=== PATIENT | female | born 1965 | race African-American/Black ===

== ENCOUNTER 2019-01-20 11:00 | Inpatient (IN) | payer SELFPAY ==
[~2019-01-20] VITALS: Ht 198.1 cm; Wt 99.1 kg
[~2019-01-20 11:00] MED LIST: PHEN100C4
[2019-01-20] MEDS ORDERED: SODIUM CHLORIDE 0.9% 1,000 ML IV ONE (12:35)
[2019-01-20] MEDS ORDERED: PHENYTOIN SODIUM 1,000 MG in SODIUM CHLORIDE 0.9% 100 ML IV ONE (12:45)
[2019-01-20 13:44] LABS: CHLORIDE 97 mEq/L (98-107)
[2019-01-20 13:47] LABS: ETHANOL BLOOD < 10 mg/dL
[2019-01-20 14:46] LABS: MEAN CORPUSCULAR HEMOGLOBIN 26.6 pg (28.0-32.0); MEAN CORPUSCULAR VOLUME 84.8 fL (81.0-99.0); MEAN PLATELET VOLUME 8.5 fl (7.4-10.4); PLATELET 86 x1000/uL (130-400); RED BLOOD CELL COUNT 1.25 mill/uL (4.2-5.4); RED CELL DISTRIBUTION WIDTH 26.5 % (11.6-14.6)
[2019-01-20 14:48] LABS: HEMOGLOBIN. 3.3 g/dL (12.0-16.0)
[2019-01-20 14:49] LABS: HEMATOCRIT. 10.6 % (36.0-48.0)
[2019-01-20 14:56] LABS: CLARITY URINE CLOUDY (CLEAR); COLOR URINE DARK YELLOW (YELLOW); KETONES URINE TRACE (NEGATIVE); LEUKOCYTE ESTERASE URINE TRACE (NEGATIVE); NITRITE URINE NEGATIVE (NEGATIVE); OCCULT BLOOD URINE 2+ (NEGATIVE); PROTEIN URINE NEGATIVE (NEGATIVE); SPECIFIC GRAVITY URINE 1.015 (1.005-1.030)
[2019-01-20 15:02] LABS: NUCLEATED RED BLOOD CELLS 1 /100 WBC; PLATELET ESTIMATE DECREASED
[2019-01-20 15:19] LABS: *BARBITURATES SCREEN URINE NEGATIVE (NEGATIVE); *BENZODIAZEPINES SCREEN URINE NEGATIVE (NEGATIVE); *COCAINE SCREEN URINE NEGATIVE (NEGATIVE)
[2019-01-20 15:20] LABS: *AMPHETAMINES SCREEN URINE NEGATIVE (NEGATIVE); CANNABINOID URINE SCREEN NEGATIVE (NEGATIVE); METHADONE URINE SCREEN NEGATIVE (NEGATIVE); OPIATES URINE SCREEN NEGATIVE (NEGATIVE); PHENCYCLIDINE URINE SCREEN NEGATIVE (NEGATIVE)
[2019-01-20 16:27] LABS: MEAN CORPUSCULAR HEMOGLOBIN 26.5 pg (28.0-32.0); MEAN CORPUSCULAR VOLUME 84.7 fL (81.0-99.0); MEAN PLATELET VOLUME 8.6 fl (7.4-10.4); PLATELET 80 x1000/uL (130-400); RED BLOOD CELL COUNT 1.24 mill/uL (4.2-5.4); RED CELL DISTRIBUTION WIDTH 27.1 % (11.6-14.6)
[2019-01-20 16:29] LABS: HEMATOCRIT. 10.5 % (36.0-48.0); HEMOGLOBIN. 3.3 g/dL (12.0-16.0)
[2019-01-20] MEDS ORDERED: GUAIFENESIN 200MG/10ML SUGAR FREE UDC PO PRN (17:00)
[2019-01-20] MEDS ORDERED: DEXTROSE 50% WATER 50ML SYRINGE IV PRN (17:00)
[2019-01-20] MEDS ORDERED: CLONIDINE 0.1MG TABLET PO PRN (17:00)
[2019-01-20] MEDS ORDERED: ONDANSETRON HCL 4MG/2ML INJ IV PRN (17:00)
[2019-01-20] MEDS ORDERED: DOCUSATE SODIUM 100MG CAPSULE PO PRN (17:00)
[2019-01-20] MEDS ORDERED: MAGNESIUM/ALUMINUM HYDROXIDE/SIMETHICONE 30ML UDC PO PRN (17:00)
[2019-01-20] MEDS ORDERED: LORAZEPAM 2MG/ML CPJ IV PRN (17:00)
[2019-01-20] MEDS ORDERED: MORPHINE SULFATE 2 MG/ML CPJ (NOT FOR IM USE) IV PRN (17:00)
[2019-01-20] MEDS ORDERED: HYDRALAZINE 20MG/ML VIAL IV PRN (17:00)
[2019-01-20] MEDS ORDERED: HYDROCODONE/ACETAMINOPHEN 10/325MG TABLET PO PRN (17:00)
[2019-01-20] MEDS ORDERED: IPRATROPIUM/ALBUTEROL 0.5-3(2.5)MG/3ML NEB HHN PRN (17:00)
[2019-01-20] MEDS ORDERED: ACETAMINOPHEN 325MG TABLET PO PRN (17:00)
[2019-01-20] MEDS ORDERED: DIPHENHYDRAMINE 50MG/ML VIAL IV PRN (17:00)
[2019-01-20 17:02] LABS: PLATELET ESTIMATE DECREASED
[2019-01-20 17:29] LABS: TOTAL IRON BINDING CAPACITY 207 ug/dL (250-450)
[2019-01-20] MEDS: SODIUM CHLORIDE 0.9% INJ 3ML FLUSH IVF SCH (22:00)
[2019-01-21] VITALS (45 sets, daily range): BP systolic 76–117; BP diastolic 39–76
[2019-01-21] MEDS: SODIUM CHLORIDE 0.9% 1,000 ML IV SCH ×2 (00:21→12:23)
[2019-01-21] MEDS: INSULIN LISPRO 100 UNITS/ML SUBCUT SCH ×6 (00:25→21:00)
[2019-01-21] MEDS: BLOOD SUGAR DIAGNOSTIC STRIP TEST SCH ×6 (00:25→21:24)
[2019-01-21 02:05] LABS: MEAN CORPUSCULAR HEMOGLOBIN 28.4 pg (28.0-32.0); MEAN CORPUSCULAR VOLUME 85.5 fL (81.0-99.0); MEAN PLATELET VOLUME 8.4 fl (7.4-10.4); PLATELET 67 x1000/uL (130-400); RED CELL DISTRIBUTION WIDTH 19.6 % (11.6-14.6)
[2019-01-21 02:09] LABS: HEMATOCRIT. 15.4 % (36.0-48.0); HEMOGLOBIN. 5.1 g/dL (12.0-16.0)
[2019-01-21 03:48] LABS: NUCLEATED RED BLOOD CELLS 1 /100 WBC; PLATELET ESTIMATE DECREASED
[2019-01-21] MEDS: SODIUM CHLORIDE 0.9% INJ 3ML FLUSH IVF SCH ×3 (06:07→21:29)
[2019-01-21] MEDS ORDERED: NOREPINEPHRINE 4 MG in DEXT 5% WATER 246 ML IV PRN (08:00)
[2019-01-21] MEDS ORDERED: NOREPINEPHRINE 32 MG in DEXT 5% WATER 468 ML IV SCH (09:45)
[2019-01-21 14:24] LABS: MEAN CORPUSCULAR HEMOGLOBIN 29.8 pg (28.0-32.0); MEAN CORPUSCULAR VOLUME 87.3 fL (81.0-99.0); MEAN PLATELET VOLUME 8.4 fl (7.4-10.4); PLATELET 61 x1000/uL (130-400); RED CELL DISTRIBUTION WIDTH 17.8 % (11.6-14.6)
[2019-01-21 14:26] LABS: HEMOGLOBIN. 6.9 g/dL (12.0-16.0)
[2019-01-21 14:27] LABS: HEMATOCRIT. 20.1 % (36.0-48.0)
[2019-01-21 14:30] LABS: CHLORIDE 99 mEq/L (98-107)
[2019-01-21 14:36] LABS: LDL CHOLESTEROL 27 mg/dL (5-100)
[2019-01-21 14:38] LABS: HDL CHOLESTEROL 20 mg/dL (40-59); TOTAL IRON BINDING CAPACITY 220 ug/dL (250-450)
[2019-01-21 14:40] LABS: CREATINE KINASE 191 IU/L (26-192); CREATINE KINASE MB FRACTION 2.9 ng/mL (0.5-3.6)
[2019-01-21 14:41] LABS: T4 FREE 1.07 ng/dL (0.76-1.46)
[2019-01-21 14:43] LABS: D-DIMER 8.5 mg/L FEU (<0.50); INR 2.7; PROTHROMBIN TIME 26.5 sec (9.6-11.0)
[2019-01-21] MEDS: PHENYTOIN SODIUM 100MG/2ML VIAL IV SCH ×2 (14:45→22:00)
[2019-01-21 14:52] LABS: PLATELET ESTIMATE DECREASED
[2019-01-21 15:19] LABS: HEPATITIS B SURFACE ANTIGEN NEGATIVE
[2019-01-21] MEDS: THIAMINE HCL 100MG TABLET PO SCH ×2 (15:40→17:12)
[2019-01-21] MEDS: METRONIDAZOLE 500 MG PREMIX 100 ML IV SCH ×2 (15:40→22:01)
[2019-01-21] MEDS: LEVOFLOXACIN 500MG PREMIX 100 ML IV SCH (15:40)
[2019-01-21] MEDS: PANTOPRAZOLE 80 MG in SODIUM CHLORIDE 0.9% 100 ML IV SCH (15:40)
[2019-01-21 15:49] LABS: HEPATITIS A AB IGM NEGATIVE (NEGATIVE)
[2019-01-21 22:55] LABS: MEAN CORPUSCULAR HEMOGLOBIN 29.1 pg (28.0-32.0); MEAN CORPUSCULAR VOLUME 87.4 fL (81.0-99.0); MEAN PLATELET VOLUME 7.8 fl (7.4-10.4); PLATELET 64 x1000/uL (130-400); RED CELL DISTRIBUTION WIDTH 18.1 % (11.6-14.6)
[2019-01-21 23:00] LABS: HEMATOCRIT. 17.5 % (36.0-48.0); HEMOGLOBIN. 5.8 g/dL (12.0-16.0)
[2019-01-21 23:22] LABS: PLATELET ESTIMATE DECREASED
[2019-01-22] VITALS (45 sets, daily range): BP systolic 84–135; BP diastolic 45–104
[2019-01-22] MEDS: PANTOPRAZOLE 80 MG in SODIUM CHLORIDE 0.9% 100 ML IV SCH ×2 (00:51→10:26)
[2019-01-22] MEDS: SODIUM CHLORIDE 0.9% 1,000 ML IV SCH ×3 (06:06→14:46)
[2019-01-22] MEDS: METRONIDAZOLE 500 MG PREMIX 100 ML IV SCH ×3 (06:07→21:44)
[2019-01-22] MEDS: SODIUM CHLORIDE 0.9% INJ 3ML FLUSH IVF SCH ×3 (06:07→21:44)
[2019-01-22] MEDS: PHENYTOIN SODIUM 100MG/2ML VIAL IV SCH ×3 (06:07→21:47)
[2019-01-22 07:35] LABS: HEMATOCRIT. 25.5 % (36.0-48.0); HEMOGLOBIN. 8.6 g/dL (12.0-16.0); MEAN CORPUSCULAR HEMOGLOBIN 29.5 pg (28.0-32.0); MEAN CORPUSCULAR VOLUME 87.7 fL (81.0-99.0); MEAN PLATELET VOLUME 8.3 fl (7.4-10.4); PLATELET 63 x1000/uL (130-400); RED BLOOD CELL COUNT 2.91 mill/uL (4.2-5.4)
[2019-01-22] MEDS: BLOOD SUGAR DIAGNOSTIC STRIP TEST SCH ×4 (08:03→21:43)
[2019-01-22] MEDS: INSULIN LISPRO 100 UNITS/ML SUBCUT SCH ×4 (08:03→21:00)
[2019-01-22 08:48] LABS: HEMATOCRIT. 28.9 % (36.0-48.0); HEMOGLOBIN. 9.9 g/dL (12.0-16.0); MEAN CORPUSCULAR HEMOGLOBIN 29.5 pg (28.0-32.0); MEAN CORPUSCULAR VOLUME 86.1 fL (81.0-99.0); MEAN PLATELET VOLUME 8.6 fl (7.4-10.4); PLATELET 73 x1000/uL (130-400); RED BLOOD CELL COUNT 3.36 mill/uL (4.2-5.4); RED CELL DISTRIBUTION WIDTH 17.2 % (11.6-14.6)
[2019-01-22] MEDS: THIAMINE HCL 100MG TABLET PO SCH ×2 (09:39→16:57)
[2019-01-22] MEDS: LEVOFLOXACIN 500MG PREMIX 100 ML IV SCH (10:26)
[2019-01-22] MEDS: PHYTONADIONE 10MG/ML AMP SUBCUT SCH (12:16)
[2019-01-22 13:06] LABS: NUCLEATED RED BLOOD CELLS 1 /100 WBC; PLATELET ESTIMATE DECREASED
[2019-01-22] MEDS: LACTULOSE 20G/30ML UDC PO SCH ×2 (13:13→21:47)
[2019-01-22 13:37] LABS: HEMATOCRIT. 28.6 % (36.0-48.0); HEMOGLOBIN. 9.8 g/dL (12.0-16.0); MEAN CORPUSCULAR HEMOGLOBIN 29.8 pg (28.0-32.0); MEAN PLATELET VOLUME 8.7 fl (7.4-10.4); PLATELET 69 x1000/uL (130-400); RED BLOOD CELL COUNT 3.29 mill/uL (4.2-5.4)
[2019-01-22 13:59] LABS: NUCLEATED RED BLOOD CELLS 1 /100 WBC
[2019-01-22 14:01] LABS: PLATELET ESTIMATE DECREASED
[2019-01-22 15:42] LABS: PLATELET ESTIMATE DECREASED
[2019-01-22] MEDS ORDERED: FENTANYL CITRATE/PF 50MCG/ML 2ML VIAL IV PRN ×2 (16:19→18:11)
[2019-01-22] MEDS ORDERED: MIDAZOLAM HCL 2 MG/2 ML VIAL IV PRN (16:20)
[2019-01-22] MEDS ORDERED: MIDAZOLAM HCL 5 MG/5 ML VIAL ONE (17:17)
[2019-01-22] MEDS ORDERED: FENTANYL CITRATE/PF 50MCG/ML 2ML VIAL ONE (17:17)
[2019-01-22 17:53] LABS: HEMATOCRIT. 25.6 % (36.0-48.0); HEMOGLOBIN. 8.7 g/dL (12.0-16.0); MEAN CORPUSCULAR HEMOGLOBIN 29.8 pg (28.0-32.0); MEAN CORPUSCULAR VOLUME 87.2 fL (81.0-99.0); MEAN PLATELET VOLUME 8.4 fl (7.4-10.4); PLATELET 61 x1000/uL (130-400); RED BLOOD CELL COUNT 2.94 mill/uL (4.2-5.4); RED CELL DISTRIBUTION WIDTH 17.7 % (11.6-14.6)
[2019-01-22] MEDS ORDERED: DIAZEPAM 5 MG/ML 2ML CPJ IV ONE (18:00)
[2019-01-22 18:04] LABS: PHOSPHORUS 4.5 mg/dL (2.5-4.9)
[2019-01-22] MEDS ORDERED: DIAZEPAM 5 MG/ML 2ML CPJ ONE (18:07)
[2019-01-22] MEDS ORDERED: DIAZEPAM 5 MG/ML 2ML CPJ IV PRN (18:10)
[2019-01-22 18:17] LABS: NUCLEATED RED BLOOD CELLS 2 /100 WBC
[2019-01-22 18:18] LABS: PLATELET ESTIMATE DECREAS
[2019-01-22] MEDS ORDERED: MAGNESIUM 2 G PREMIX 50 ML IV NR (20:00)
[2019-01-22] MEDS: SUCRALFATE 1 G/10 ML UDC PO SCH (20:38)
[2019-01-22] MEDS: PANTOPRAZOLE SODIUM 40 MG/VIAL IV SCH (20:39)
[2019-01-22 21:54] LABS: HEMATOCRIT. 26.5 % (36.0-48.0); HEMOGLOBIN. 8.9 g/dL (12.0-16.0); MEAN CORPUSCULAR HEMOGLOBIN 29.7 pg (28.0-32.0); MEAN CORPUSCULAR VOLUME 88.1 fL (81.0-99.0); MEAN PLATELET VOLUME 8.5 fl (7.4-10.4); PLATELET 67 x1000/uL (130-400); RED BLOOD CELL COUNT 3.01 mill/uL (4.2-5.4); RED CELL DISTRIBUTION WIDTH 17.7 % (11.6-14.6)
[2019-01-22 22:16] LABS: NUCLEATED RED BLOOD CELLS 1 /100 WBC; PLATELET ESTIMATE DECREASED
[2019-01-23] VITALS (39 sets, daily range): BP systolic 85–111; BP diastolic 21–72
[2019-01-23] MEDS: SODIUM CHLORIDE 0.9% 1,000 ML IV SCH (04:08)
[2019-01-23] MEDS: METRONIDAZOLE 500 MG PREMIX 100 ML IV SCH ×3 (05:01→21:44)
[2019-01-23] MEDS: PHENYTOIN SODIUM 100MG/2ML VIAL IV SCH ×3 (05:01→21:44)
[2019-01-23] MEDS: SODIUM CHLORIDE 0.9% INJ 3ML FLUSH IVF SCH ×3 (05:01→21:44)
[2019-01-23] MEDS: LACTULOSE 20G/30ML UDC PO SCH ×3 (05:01→21:44)
[2019-01-23 05:47] LABS: HEMATOCRIT. 26.2 % (36.0-48.0); HEMOGLOBIN. 8.9 g/dL (12.0-16.0); MEAN CORPUSCULAR HEMOGLOBIN 29.7 pg (28.0-32.0); MEAN CORPUSCULAR VOLUME 87.3 fL (81.0-99.0); MEAN PLATELET VOLUME 8.7 fl (7.4-10.4); PLATELET 62 x1000/uL (130-400); RED CELL DISTRIBUTION WIDTH 17.8 % (11.6-14.6)
[2019-01-23] MEDS: METOCLOPRAMIDE HCL 10MG/2ML VIAL IV SCH ×3 (07:50→17:55)
[2019-01-23] MEDS: SUCRALFATE 1 G/10 ML UDC PO SCH ×4 (07:50→20:00)
[2019-01-23 08:16] LABS: PLATELET ESTIMATE DECREASED
[2019-01-23] MEDS: INSULIN LISPRO 100 UNITS/ML SUBCUT SCH ×4 (08:20→21:00)
[2019-01-23] MEDS: BLOOD SUGAR DIAGNOSTIC STRIP TEST SCH ×4 (08:43→21:43)
[2019-01-23] MEDS ORDERED: PANTOPRAZOLE SODIUM 40 MG/VIAL IV SCH (09:00)
[2019-01-23] MEDS: THIAMINE HCL 100MG TABLET PO SCH (09:00)
[2019-01-23 09:38] LABS: HEMATOCRIT. 26.3 % (36.0-48.0); HEMOGLOBIN. 8.9 g/dL (12.0-16.0); MEAN CORPUSCULAR HEMOGLOBIN 29.8 pg (28.0-32.0); MEAN CORPUSCULAR VOLUME 88.3 fL (81.0-99.0); MEAN PLATELET VOLUME 8.4 fl (7.4-10.4); PLATELET 61 x1000/uL (130-400); RED BLOOD CELL COUNT 2.98 mill/uL (4.2-5.4); RED CELL DISTRIBUTION WIDTH 17.8 % (11.6-14.6)
[2019-01-23] MEDS ORDERED: THIAMINE HCL 100 MG in SODIUM CHLORIDE 0.9% 49 ML IV ONE (10:00)
[2019-01-23] MEDS ORDERED: DEXT 5%/0.45% NACL 1000ML 1,000 ML IV SCH (11:30)
[2019-01-23] MEDS: PHYTONADIONE 10MG/ML AMP SUBCUT SCH (11:54)
[2019-01-23] MEDS: LEVOFLOXACIN 250MG PREMIX 50 ML IV SCH (11:55)
[2019-01-23] MEDS: PANTOPRAZOLE SODIUM 40 MG/VIAL IV SCH ×2 (11:55→20:00)
[2019-01-23 12:14] LABS: PLATELET ESTIMATE DECREASED
[2019-01-23 13:43] LABS: HEMATOCRIT. 24.8 % (36.0-48.0); HEMOGLOBIN. 8.4 g/dL (12.0-16.0); MEAN CORPUSCULAR HEMOGLOBIN 29.9 pg (28.0-32.0); MEAN CORPUSCULAR VOLUME 88.4 fL (81.0-99.0); MEAN PLATELET VOLUME 7.8 fl (7.4-10.4); PLATELET 80 x1000/uL (130-400); RED CELL DISTRIBUTION WIDTH 18.1 % (11.6-14.6)
[2019-01-23 14:16] LABS: PLATELET ESTIMATE DECREASED
[2019-01-23] MEDS: DEXT 5%/0.45% NACL 1000ML 1,000 ML IV SCH (15:30)
[2019-01-23] MEDS: [UNRECOGNIZED DRUG - REMARK] IV SCH ×4 (16:14)
[2019-01-23 19:07] LABS: HEMATOCRIT. 24.5 % (36.0-48.0); HEMOGLOBIN. 8.3 g/dL (12.0-16.0); MEAN CORPUSCULAR HEMOGLOBIN 29.9 pg (28.0-32.0); MEAN CORPUSCULAR VOLUME 88.4 fL (81.0-99.0); MEAN PLATELET VOLUME 8.5 fl (7.4-10.4); PLATELET 78 x1000/uL (130-400); RED BLOOD CELL COUNT 2.77 mill/uL (4.2-5.4); RED CELL DISTRIBUTION WIDTH 17.7 % (11.6-14.6)
[2019-01-23 19:38] LABS: NUCLEATED RED BLOOD CELLS 2 /100 WBC; PLATELET ESTIMATE DECREASED
[2019-01-23 21:59] LABS: HEMATOCRIT. 26.7 % (36.0-48.0); HEMOGLOBIN. 8.9 g/dL (12.0-16.0); MEAN CORPUSCULAR HEMOGLOBIN 29.8 pg (28.0-32.0); PLATELET 75 x1000/uL (130-400); RED CELL DISTRIBUTION WIDTH 17.4 % (11.6-14.6)
[2019-01-23 22:27] LABS: NUCLEATED RED BLOOD CELLS 1 /100 WBC; PLATELET ESTIMATE DECREASED
[2019-01-24] VITALS (20 sets, daily range): BP systolic 80–114; BP diastolic 39–74
[2019-01-24] MEDS: DEXT 5%/0.45% NACL 1000ML 1,000 ML IV SCH ×2 (04:50→18:34)
[2019-01-24] MEDS: METRONIDAZOLE 500 MG PREMIX 100 ML IV SCH ×3 (06:00→22:00)
[2019-01-24] MEDS: SODIUM CHLORIDE 0.9% INJ 3ML FLUSH IVF SCH ×3 (06:00→22:00)
[2019-01-24] MEDS: LACTULOSE 20G/30ML UDC PO SCH ×3 (06:00→21:03)
[2019-01-24] MEDS: PHENYTOIN SODIUM 100MG/2ML VIAL IV SCH ×3 (06:00→21:03)
[2019-01-24] MEDS: BLOOD SUGAR DIAGNOSTIC STRIP TEST SCH ×4 (07:50→21:03)
[2019-01-24 07:53] LABS: HIV SCREEN 4G Non Reactive (Non Reactive)
[2019-01-24] MEDS: INSULIN LISPRO 100 UNITS/ML SUBCUT SCH ×4 (08:20→21:00)
[2019-01-24 08:46] LABS: HEMATOCRIT. 26.3 % (36.0-48.0); HEMOGLOBIN. 8.8 g/dL (12.0-16.0); MEAN CORPUSCULAR HEMOGLOBIN 29.8 pg (28.0-32.0); MEAN CORPUSCULAR VOLUME 89.1 fL (81.0-99.0); MEAN PLATELET VOLUME 8.3 fl (7.4-10.4); PLATELET 80 x1000/uL (130-400); RED BLOOD CELL COUNT 2.95 mill/uL (4.2-5.4); RED CELL DISTRIBUTION WIDTH 18.1 % (11.6-14.6)
[2019-01-24] MEDS: PANTOPRAZOLE SODIUM 40 MG/VIAL IV SCH ×2 (09:00→10:24)
[2019-01-24] MEDS ORDERED: BISACODYL 10MG SUPP PR SCH (10:00)
[2019-01-24 10:08] LABS: *CREATININE RANDOM URINE 174.1 mg/dL (Not Estab.)
[2019-01-24] MEDS: METOCLOPRAMIDE HCL 10MG/2ML VIAL IV SCH ×3 (10:10→17:18)
[2019-01-24] MEDS: SUCRALFATE 1 G/10 ML UDC PO SCH ×4 (10:13→21:04)
[2019-01-24] MEDS: PHYTONADIONE 10MG/ML AMP SUBCUT SCH (10:24)
[2019-01-24] MEDS: LEVOFLOXACIN 250MG PREMIX 50 ML IV SCH (10:26)
[2019-01-24 12:00] LABS: HEMATOCRIT. 25.1 % (36.0-48.0); HEMOGLOBIN. 8.3 g/dL (12.0-16.0); MEAN CORPUSCULAR HEMOGLOBIN 29.4 pg (28.0-32.0); MEAN CORPUSCULAR VOLUME 89.3 fL (81.0-99.0); PLATELET 74 x1000/uL (130-400); RED BLOOD CELL COUNT 2.81 mill/uL (4.2-5.4); RED CELL DISTRIBUTION WIDTH 18.5 % (11.6-14.6)
[2019-01-24 12:13] LABS: INR 2.6; PARTIAL THROMBOPLASTIN TIME 40.2 sec (23.4-31.0); PROTHROMBIN TIME 25.6 sec (9.6-11.0)
[2019-01-24 13:01] LABS: BASOPHILS % 1.1 % (0.0-2.0); EOSINOPHILS % 5.3 % (0.0-5.0); LYMPHOCYTES % 22.8 % (20.0-50.0); MONOCYTES % 21.4 % (2.0-8.0); NEUTROPHILS % 49.4 % (40.0-76.0)
[2019-01-24] MEDS: [UNRECOGNIZED DRUG - REMARK] IV SCH ×4 (15:11)
[2019-01-24] MEDS ORDERED: PHYTONADIONE 10MG/ML AMP SUBCUT ONE (15:45)
[2019-01-24] MEDS ORDERED: PHYTONADIONE 10MG/ML AMP SUBCUT NR (16:00)
[2019-01-24 16:02] LABS: PLATELET ESTIMATE DECREASED
[2019-01-24 16:49] LABS: PLATELET ESTIMATE DECREASED
[2019-01-24 17:02] LABS: HEMATOCRIT. 23.9 % (36.0-48.0); HEMOGLOBIN. 7.9 g/dL (12.0-16.0); MEAN CORPUSCULAR HEMOGLOBIN 29.5 pg (28.0-32.0); MEAN CORPUSCULAR VOLUME 89.1 fL (81.0-99.0); MEAN PLATELET VOLUME 8.1 fl (7.4-10.4); PLATELET 67 x1000/uL (130-400); RED BLOOD CELL COUNT 2.68 mill/uL (4.2-5.4); RED CELL DISTRIBUTION WIDTH 18.1 % (11.6-14.6)
[2019-01-24 17:16] LABS: CLARITY URINE TURBID (CLEAR); COLOR URINE ORANGE (YELLOW); KETONES URINE NEGATIVE (NEGATIVE); LEUKOCYTE ESTERASE URINE 2+ (NEGATIVE); NITRITE URINE POSITIVE (NEGATIVE); OCCULT BLOOD URINE 1+ (NEGATIVE); PROTEIN URINE 2+ (NEGATIVE); SPECIFIC GRAVITY URINE 1.023 (1.005-1.030)
[2019-01-24 18:32] LABS: PLATELET ESTIMATE DECREASED
[2019-01-24] MEDS: RIFAXIMIN 550 MG TABLET PO SCH (21:03)
[2019-01-24 21:07] LABS: HEMATOCRIT. 24.5 % (36.0-48.0); HEMOGLOBIN. 8.2 g/dL (12.0-16.0); MEAN CORPUSCULAR HEMOGLOBIN 29.7 pg (28.0-32.0); MEAN CORPUSCULAR VOLUME 89.6 fL (81.0-99.0); MEAN PLATELET VOLUME 8.1 fl (7.4-10.4); PLATELET 73 x1000/uL (130-400); RED BLOOD CELL COUNT 2.74 mill/uL (4.2-5.4); RED CELL DISTRIBUTION WIDTH 18.2 % (11.6-14.6)
[2019-01-24 21:43] LABS: NUCLEATED RED BLOOD CELLS 3 /100 WBC
[2019-01-24 21:45] LABS: PLATELET ESTIMATE DECREAS
[2019-01-25] VITALS (42 sets, daily range): BP systolic 86–122; BP diastolic 40–90
[2019-01-25] MEDS: SODIUM CHLORIDE 0.9% INJ 3ML FLUSH IVF SCH ×2 (05:18→14:13)
[2019-01-25 05:27] LABS: HEMATOCRIT. 24.6 % (36.0-48.0); HEMOGLOBIN. 8.2 g/dL (12.0-16.0); MEAN CORPUSCULAR HEMOGLOBIN 29.8 pg (28.0-32.0); MEAN CORPUSCULAR VOLUME 89.5 fL (81.0-99.0); PLATELET 72 x1000/uL (130-400); RED BLOOD CELL COUNT 2.75 mill/uL (4.2-5.4); RED CELL DISTRIBUTION WIDTH 18.4 % (11.6-14.6)
[2019-01-25 05:36] LABS: INR 2.6; PROTHROMBIN TIME 25.4 sec (9.6-11.0)
[2019-01-25] MEDS: METRONIDAZOLE 500 MG PREMIX 100 ML IV SCH ×3 (05:39→21:46)
[2019-01-25] MEDS: PHENYTOIN SODIUM 100MG/2ML VIAL IV SCH ×2 (05:39→14:13)
[2019-01-25] MEDS: LACTULOSE 20G/30ML UDC PO SCH ×2 (05:39→14:00)
[2019-01-25] MEDS: BLOOD SUGAR DIAGNOSTIC STRIP TEST SCH ×4 (07:50→21:00)
[2019-01-25 07:53] LABS: NUCLEATED RED BLOOD CELLS 1 /100 WBC
[2019-01-25 07:54] LABS: PLATELET ESTIMATE DECREASED
[2019-01-25] MEDS: INSULIN LISPRO 100 UNITS/ML SUBCUT SCH ×4 (08:20→21:00)
[2019-01-25] MEDS: METOCLOPRAMIDE HCL 10MG/2ML VIAL IV SCH ×3 (08:50→18:13)
[2019-01-25] MEDS: SUCRALFATE 1 G/10 ML UDC PO SCH ×4 (08:50→21:49)
[2019-01-25] MEDS: PANTOPRAZOLE SODIUM 40 MG/VIAL IV SCH ×2 (08:51→21:47)
[2019-01-25] MEDS: DEXT 5%/0.45% NACL 1000ML 1,000 ML IV SCH (08:51)
[2019-01-25] MEDS: RIFAXIMIN 550 MG TABLET PO SCH ×2 (08:51→21:47)
[2019-01-25 10:47] LABS: HEMATOCRIT. 21.7 % (36.0-48.0); HEMOGLOBIN. 7.3 g/dL (12.0-16.0); MEAN CORPUSCULAR HEMOGLOBIN 30.3 pg (28.0-32.0); MEAN CORPUSCULAR VOLUME 90.3 fL (81.0-99.0); MEAN PLATELET VOLUME 8.2 fl (7.4-10.4); PLATELET 62 x1000/uL (130-400); RED BLOOD CELL COUNT 2.41 mill/uL (4.2-5.4); RED CELL DISTRIBUTION WIDTH 18.4 % (11.6-14.6)
[2019-01-25] MEDS: LEVOFLOXACIN 250MG PREMIX 50 ML IV SCH (12:26)
[2019-01-25] MEDS ORDERED: LACTULOSE 300 ML in WATER FOR IRRIGATION,STERILE 700 ML IR SCH (13:00)
[2019-01-25] MEDS ORDERED: SODIUM BICARBONATE 4% (2.4MEQ) 5ML VIAL IV ONE (13:59)
[2019-01-25] MEDS ORDERED: LIDOCAINE HCL 1% 20ML VIAL (Pyxis) INJ ONE (13:59)
[2019-01-25 14:08] LABS: HEMATOCRIT. 23.2 % (36.0-48.0); HEMOGLOBIN. 7.7 g/dL (12.0-16.0); MEAN CORPUSCULAR HEMOGLOBIN 30.1 pg (28.0-32.0); MEAN CORPUSCULAR VOLUME 90.9 fL (81.0-99.0); MEAN PLATELET VOLUME 8.4 fl (7.4-10.4); PLATELET 67 x1000/uL (130-400); RED BLOOD CELL COUNT 2.55 mill/uL (4.2-5.4); RED CELL DISTRIBUTION WIDTH 18.4 % (11.6-14.6)
[2019-01-25] MEDS ORDERED: LACTULOSE 20G/30ML UDC ONE ×2 (14:09→20:24)
[2019-01-25] MEDS ORDERED: HEPARIN 1000 UNITS/ML 10ML ONE (14:16)
[2019-01-25 14:40] LABS: PLATELET ESTIMATE DECREASED
[2019-01-25 15:52] LABS: PLATELET ESTIMATE DECREASED
[2019-01-25] MEDS: [UNRECOGNIZED DRUG - REMARK] IV SCH ×4 (17:17)
[2019-01-25 20:57] LABS: EOSINOPHILS % 4.5 % (0.0-5.0); HEMATOCRIT. 23.1 % (36.0-48.0); HEMOGLOBIN. 7.8 g/dL (12.0-16.0); LYMPHOCYTES % 14.7 % (20.0-50.0); MEAN CORPUSCULAR HEMOGLOBIN 29.6 pg (28.0-32.0); MEAN CORPUSCULAR VOLUME 87.8 fL (81.0-99.0); MEAN PLATELET VOLUME 8.3 fl (7.4-10.4); MONOCYTES % 14.9 % (2.0-8.0); NEUTROPHILS % 64.9 % (40.0-76.0); RED BLOOD CELL COUNT 2.63 mill/uL (4.2-5.4); RED CELL DISTRIBUTION WIDTH 19.5 % (11.6-14.6)
[2019-01-25] MEDS ORDERED: LACTULOSE 20G/30ML UDC PO SCH (21:15)
[2019-01-25] MEDS: LEVETIRACETAM 250 MG in SODIUM CHLORIDE 0.9% 100 ML IV SCH (22:44)
[2019-01-25] MEDS: PHYTONADIONE 10MG/ML AMP SUBCUT SCH (23:05)
[2019-01-26] VITALS (41 sets, daily range): BP systolic 75–146; BP diastolic 38–85
[2019-01-26] MEDS ORDERED: LACTULOSE 20G/30ML UDC PO SCH (00:30)
[2019-01-26] MEDS: DEXT 5%/0.45% NACL 1000ML 1,000 ML IV SCH ×2 (00:58→10:39)
[2019-01-26] MEDS: NOREPINEPHRINE 4 MG in DEXT 5% WATER 246 ML IV PRN ×2 (02:15→10:42)
[2019-01-26 05:37] LABS: PHOSPHORUS 3.9 mg/dL (2.5-4.9)
[2019-01-26 05:43] LABS: HEMATOCRIT. 24.5 % (36.0-48.0); HEMOGLOBIN. 8.2 g/dL (12.0-16.0); INR 3.1; MEAN CORPUSCULAR HEMOGLOBIN 29.9 pg (28.0-32.0); MEAN CORPUSCULAR VOLUME 89.4 fL (81.0-99.0); MEAN PLATELET VOLUME 8.4 fl (7.4-10.4); PROTHROMBIN TIME 30.1 sec (9.6-11.0); RED BLOOD CELL COUNT 2.74 mill/uL (4.2-5.4)
[2019-01-26] MEDS: METRONIDAZOLE 500 MG PREMIX 100 ML IV SCH ×3 (05:50→21:26)
[2019-01-26] MEDS: SODIUM CHLORIDE 0.9% INJ 3ML FLUSH IVF SCH ×2 (06:00→14:52)
[2019-01-26 06:35] LABS: PLATELET 38 x1000/uL (130-400)
[2019-01-26] MEDS: LACTULOSE 20G/30ML UDC PO SCH ×5 (07:15→18:00)
[2019-01-26] MEDS: SUCRALFATE 1 G/10 ML UDC PO SCH ×5 (07:50→21:38)
[2019-01-26] MEDS: INSULIN LISPRO 100 UNITS/ML SUBCUT SCH ×4 (08:20→21:00)
[2019-01-26] MEDS: PANTOPRAZOLE SODIUM 40 MG/VIAL IV SCH ×2 (08:28→22:03)
[2019-01-26] MEDS: METOCLOPRAMIDE HCL 10MG/2ML VIAL IV SCH ×4 (08:28→18:11)
[2019-01-26] MEDS: BLOOD SUGAR DIAGNOSTIC STRIP TEST SCH ×4 (08:32→21:00)
[2019-01-26] MEDS: RIFAXIMIN 550 MG TABLET PO SCH ×3 (08:44→21:39)
[2019-01-26 09:04] LABS: BG BASE EXCESS -8.2 mmol/L (-2.0-2.0); BG CARBOXYHEMOGLOBIN 0.9 % (0.5-1.5); BG DEOXYHEMOGLOBIN 2.1 % (0.0-5.0); BG FRACTION INSPIRED OXYGEN 32; BG HCO3 ACT 17.3 mmol/L (22.0-26.0); BG METHEMOGLOBIN 0.3 % (0.0-1.5); BG OXYGEN SATURATION 97.9 % (92.0-98.5); BG OXYHEMOGLOBIN 96.7 % (94.0-97.0); BG PCO2 35.1 mmHg (35.0-45.0); BG PO2 114.2 mmHg (75.0-100.0); BG SAMPLE SITE RIGHT RADIAL; BG TOTAL HEMOGLOBIN 8.6 g/dL (12.0-18.0); BG VENT MODE NASAL CANNULA
[2019-01-26 09:20] LABS: PLATELET 39 x1000/uL (130-400)
[2019-01-26 09:45] LABS: NUCLEATED RED BLOOD CELLS 1 /100 WBC
[2019-01-26 09:46] LABS: PLATELET ESTIMATE MARKEDLY DECREASED
[2019-01-26] MEDS: LEVETIRACETAM 250 MG in SODIUM CHLORIDE 0.9% 100 ML IV SCH ×2 (10:39→21:26)
[2019-01-26] MEDS: LEVOFLOXACIN 250MG PREMIX 50 ML IV SCH (11:00)
[2019-01-26] MEDS ORDERED: LIDOCAINE HCL/PF 1% 2ML VIAL ONE (13:54)
[2019-01-26] MEDS: [UNRECOGNIZED DRUG - REMARK] IV SCH ×4 (16:37)
[2019-01-26 17:49] LABS: BASOPHILS % 0.5 % (0.0-2.0); EOSINOPHILS % 4.2 % (0.0-5.0); LYMPHOCYTES % 13.4 % (20.0-50.0); MEAN CORPUSCULAR HEMOGLOBIN 29.6 pg (28.0-32.0); MEAN CORPUSCULAR VOLUME 88.6 fL (81.0-99.0); MEAN PLATELET VOLUME 8.3 fl (7.4-10.4); MONOCYTES % 12.4 % (2.0-8.0); NEUTROPHILS % 69.5 % (40.0-76.0)
[2019-01-26 18:01] LABS: HEMATOCRIT. 18.6 % (36.0-48.0); HEMOGLOBIN. 6.2 g/dL (12.0-16.0)
[2019-01-26 18:02] LABS: PLATELET 36 x1000/uL (130-400)
[2019-01-26] MEDS: PHYTONADIONE 10MG/ML AMP SUBCUT SCH (21:26)
[2019-01-27] VITALS (92 sets, daily range): BP systolic 80–145; BP diastolic 35–96
[2019-01-27] MEDS: DEXT 5%/0.45% NACL 1000ML 1,000 ML IV SCH ×2 (02:51→12:23)
[2019-01-27 03:28] LABS: BG BASE EXCESS 0.5 mmol/L (-2.0-2.0); BG CARBOXYHEMOGLOBIN 1.1 % (0.5-1.5); BG DEOXYHEMOGLOBIN 2.2 % (0.0-5.0); BG FRACTION INSPIRED OXYGEN 28; BG HCO3 ACT 24.3 mmol/L (22.0-26.0); BG METHEMOGLOBIN 0.2 % (0.0-1.5); BG OXYGEN SATURATION 97.8 % (92.0-98.5); BG OXYHEMOGLOBIN 96.5 % (94.0-97.0); BG PCO2 35.7 mmHg (35.0-45.0); BG SAMPLE SITE RIGHT RADIAL; BG TOTAL HEMOGLOBIN 9.7 g/dL (12.0-18.0); BG VENT MODE NASAL CANNULA
[2019-01-27] MEDS: METRONIDAZOLE 500 MG PREMIX 100 ML IV SCH ×3 (05:38→21:49)
[2019-01-27] MEDS: BLOOD SUGAR DIAGNOSTIC STRIP TEST SCH ×4 (07:50→20:40)
[2019-01-27] MEDS: SUCRALFATE 1 G/10 ML UDC PO SCH ×5 (07:50→23:48)
[2019-01-27] MEDS: INSULIN LISPRO 100 UNITS/ML SUBCUT SCH ×4 (08:20→20:40)
[2019-01-27] MEDS: IPRATROPIUM/ALBUTEROL 0.5-3(2.5)MG/3ML NEB HHN SCH ×4 (08:30→20:10)
[2019-01-27 08:45] LABS: BASOPHILS % 0.7 % (0.0-2.0); EOSINOPHILS % 4.2 % (0.0-5.0); HEMATOCRIT. 24.4 % (36.0-48.0); HEMOGLOBIN. 8.4 g/dL (12.0-16.0); MEAN CORPUSCULAR HEMOGLOBIN 30.4 pg (28.0-32.0); MEAN CORPUSCULAR VOLUME 88.2 fL (81.0-99.0); MEAN PLATELET VOLUME 7.2 fl (7.4-10.4); MONOCYTES % 12.6 % (2.0-8.0); NEUTROPHILS % 71.5 % (40.0-76.0); PLATELET 55 x1000/uL (130-400); RED BLOOD CELL COUNT 2.77 mill/uL (4.2-5.4)
[2019-01-27 08:54] LABS: PROTHROMBIN TIME 19.9 sec (9.6-11.0)
[2019-01-27] MEDS: RIFAXIMIN 550 MG TABLET PO SCH ×2 (09:00→20:44)
[2019-01-27 09:11] LABS: CHLORIDE 106 mEq/L (98-107)
[2019-01-27 09:17] LABS: PHOSPHORUS 2.7 mg/dL (2.5-4.9)
[2019-01-27] MEDS: METOCLOPRAMIDE HCL 10MG/2ML VIAL IV SCH ×3 (09:23→17:30)
[2019-01-27] MEDS: PANTOPRAZOLE SODIUM 40 MG/VIAL IV SCH ×2 (09:24→21:48)
[2019-01-27] MEDS: LEVETIRACETAM 250 MG in SODIUM CHLORIDE 0.9% 100 ML IV SCH ×2 (09:24→21:48)
[2019-01-27] MEDS ORDERED: RACEPINEPHRINE 2.25% 0.5ML NEB VIAL HHN NR (09:30)
[2019-01-27 09:31] LABS: BG BASE EXCESS 3.2 mmol/L (-2.0-2.0); BG CARBOXYHEMOGLOBIN 1.4 % (0.5-1.5); BG DEOXYHEMOGLOBIN 0.4 % (0.0-5.0); BG FRACTION INSPIRED OXYGEN 80; BG METHEMOGLOBIN 0.3 % (0.0-1.5); BG OXYGEN SATURATION 99.6 % (92.0-98.5); BG OXYHEMOGLOBIN 97.9 % (94.0-97.0); BG PCO2 37.7 mmHg (35.0-45.0); BG PH 7.473 (7.350-7.450); BG PO2 430.9 mmHg (75.0-100.0); BG SAMPLE SITE RIGHT RADIAL; BG TIDAL VOLUME(mL) 500 mL; BG TOTAL HEMOGLOBIN 8.8 g/dL (12.0-18.0); BG VENT MODE VENT - A/C; BG VENT RATE 14 set
[2019-01-27] MEDS: LEVOFLOXACIN 250MG PREMIX 50 ML IV SCH (10:11)
[2019-01-27] MEDS: MIDAZOLAM HCL 50 MG in DEXTROSE 5% WATER 40 ML IV PRN ×2 (10:13→20:26)
[2019-01-27] MEDS: FENTANYL CITRATE/PF 500 MCG in SODIUM CHLORIDE 0.9% 40 ML IV PRN ×2 (10:14→21:32)
[2019-01-27 11:53] LABS: D-DIMER > 35.20 mg/L FEU (<0.50)
[2019-01-27 11:55] LABS: FIBRINOGEN 89 mg/dL (200-400)
[2019-01-27] MEDS: LACTULOSE 20G/30ML UDC PO SCH ×3 (12:00→23:48)
[2019-01-27] MEDS ORDERED: MAGNESIUM 2 G PREMIX 50 ML IV NR (12:00)
[2019-01-27] MEDS: SODIUM CHLORIDE 0.9% INJ 3ML FLUSH IVF SCH ×2 (14:00→21:49)
[2019-01-27 15:59] LABS: HEMATOCRIT 22.9 % (36.0-48.0); HEMOGLOBIN 7.9 g/dL (12.0-16.0)
[2019-01-27] MEDS: [UNRECOGNIZED DRUG - REMARK] IV SCH ×4 (16:35)
[2019-01-27] MEDS: NOREPINEPHRINE 4 MG in DEXT 5% WATER 246 ML IV PRN (16:36)
[2019-01-27] MEDS: PHYTONADIONE 10MG/ML AMP SUBCUT SCH (21:48)
[2019-01-28] VITALS (145 sets, daily range): BP systolic 66–124; BP diastolic 36–73
[2019-01-28 00:23] LABS: HEMATOCRIT 18.2 % (36.0-48.0); HEMOGLOBIN 6.2 g/dL (12.0-16.0)
[2019-01-28] MEDS: IPRATROPIUM/ALBUTEROL 0.5-3(2.5)MG/3ML NEB HHN SCH ×4 (01:23→20:23)
[2019-01-28] MEDS: NOREPINEPHRINE 4 MG in DEXT 5% WATER 246 ML IV PRN ×2 (02:08→10:44)
[2019-01-28] MEDS: SODIUM CHLORIDE 0.9% INJ 3ML FLUSH IVF SCH ×3 (05:22→22:22)
[2019-01-28] MEDS: SUCRALFATE 1 G/10 ML UDC PO SCH ×4 (05:22→23:50)
[2019-01-28] MEDS: LACTULOSE 20G/30ML UDC PO SCH ×4 (05:22→23:50)
[2019-01-28 06:00] LABS: HEMATOCRIT 23.2 % (36.0-48.0); HEMOGLOBIN 8.1 g/dL (12.0-16.0); MEAN CORPUSCULAR HEMOGLOBIN 30.9 pg (28.0-32.0); PLATELET 56 x1000/uL (130-400); RED BLOOD CELL COUNT 2.61 mill/uL (4.2-5.4); RED CELL DISTRIBUTION WIDTH 16.5 % (11.6-14.6)
[2019-01-28] MEDS: METRONIDAZOLE 500 MG PREMIX 100 ML IV SCH ×3 (06:20→21:34)
[2019-01-28] MEDS: LEVETIRACETAM 250 MG in SODIUM CHLORIDE 0.9% 100 ML IV SCH ×2 (08:00→21:34)
[2019-01-28] MEDS: PANTOPRAZOLE SODIUM 40 MG/VIAL IV SCH ×2 (08:00→21:34)
[2019-01-28] MEDS: METOCLOPRAMIDE HCL 10MG/2ML VIAL IV SCH ×3 (08:00→17:13)
[2019-01-28] MEDS: DEXT 5%/0.45% NACL 1000ML 1,000 ML IV SCH (08:01)
[2019-01-28] MEDS: RIFAXIMIN 550 MG TABLET PO SCH ×2 (08:01→20:13)
[2019-01-28 08:17] LABS: BG BASE EXCESS -1.3 mmol/L (-2.0-2.0); BG FRACTION INSPIRED OXYGEN 40; BG METHEMOGLOBIN 0.2 % (0.0-1.5); BG OXYHEMOGLOBIN 95.8 % (94.0-97.0); BG PCO2 42.6 mmHg (35.0-45.0); BG PH 7.368 (7.350-7.450); BG PO2 96.8 mmHg (75.0-100.0); BG SAMPLE SITE RIGHT RADIAL; BG TIDAL VOLUME(mL) 500 mL; BG TOTAL HEMOGLOBIN 8.8 g/dL (12.0-18.0); BG VENT MODE VENT - A/C; BG VENT RATE 12 set
[2019-01-28] MEDS: FENTANYL CITRATE/PF 500 MCG in SODIUM CHLORIDE 0.9% 40 ML IV PRN ×2 (08:56→21:35)
[2019-01-28 09:52] LABS: PROTHROMBIN TIME 20.4 sec (9.6-11.0)
[2019-01-28] MEDS: MIDAZOLAM HCL 50 MG in DEXTROSE 5% WATER 40 ML IV PRN ×2 (09:53→23:28)
[2019-01-28 10:06] LABS: PHOSPHORUS 3.4 mg/dL (2.5-4.9)
[2019-01-28] MEDS: LEVOFLOXACIN 250MG PREMIX 50 ML IV SCH (10:45)
[2019-01-28] MEDS: INSULIN LISPRO 100 UNITS/ML SUBCUT SCH ×2 (12:00→17:17)
[2019-01-28 12:08] LABS: HEMATOCRIT 23.2 % (36.0-48.0)
[2019-01-28] MEDS: BLOOD SUGAR DIAGNOSTIC STRIP TEST SCH ×2 (12:52→17:17)
[2019-01-28] MEDS: NOREPINEPHRINE 16 MG in DEXT 5% WATER 234 ML IV PRN (16:08)
[2019-01-28] MEDS: [UNRECOGNIZED DRUG - REMARK] IV SCH ×4 (17:12)
[2019-01-28 19:35] LABS: HEMATOCRIT 19.7 % (36.0-48.0); HEMOGLOBIN 6.8 g/dL (12.0-16.0)
[2019-01-28 20:55] LABS: PROTHROMBIN TIME 19.7 sec (9.6-11.0)
[2019-01-28] MEDS ORDERED: PHYTONADIONE 10MG/ML AMP SUBCUT NR (22:30)
[2019-01-29] VITALS (109 sets, daily range): BP systolic 72–115; BP diastolic 34–75
[2019-01-29] MEDS: IPRATROPIUM/ALBUTEROL 0.5-3(2.5)MG/3ML NEB HHN SCH ×4 (01:38→20:32)
[2019-01-29] MEDS: DEXT 5%/0.45% NACL 1000ML 1,000 ML IV SCH (04:26)
[2019-01-29] MEDS: NOREPINEPHRINE 16 MG in DEXT 5% WATER 234 ML IV PRN ×2 (04:55→15:15)
[2019-01-29 05:33] LABS: MEAN CORPUSCULAR HEMOGLOBIN 30.5 pg (28.0-32.0); MEAN CORPUSCULAR VOLUME 88.6 fL (81.0-99.0); MEAN PLATELET VOLUME 7.6 fl (7.4-10.4); RED BLOOD CELL COUNT 2.15 mill/uL (4.2-5.4); RED CELL DISTRIBUTION WIDTH 15.3 % (11.6-14.6)
[2019-01-29 05:38] LABS: INR 2.2; PROTHROMBIN TIME 21.4 sec (9.6-11.0)
[2019-01-29 05:43] LABS: HEMOGLOBIN. 6.5 g/dL (12.0-16.0)
[2019-01-29 05:44] LABS: PLATELET 33 x1000/uL (130-400)
[2019-01-29] MEDS: LACTULOSE 20G/30ML UDC PO SCH ×3 (06:00→17:04)
[2019-01-29] MEDS: SUCRALFATE 1 G/10 ML UDC PO SCH ×3 (06:00→17:04)
[2019-01-29] MEDS: INSULIN LISPRO 100 UNITS/ML SUBCUT SCH ×4 (06:00→17:09)
[2019-01-29] MEDS: SODIUM CHLORIDE 0.9% INJ 3ML FLUSH IVF SCH ×3 (06:15→21:19)
[2019-01-29] MEDS: BLOOD SUGAR DIAGNOSTIC STRIP TEST SCH ×4 (06:16→17:09)
[2019-01-29] MEDS: FENTANYL CITRATE/PF 500 MCG in SODIUM CHLORIDE 0.9% 40 ML IV PRN ×2 (06:38→17:10)
[2019-01-29] MEDS: RIFAXIMIN 550 MG TABLET PO SCH ×2 (08:12→21:00)
[2019-01-29] MEDS: PANTOPRAZOLE SODIUM 40 MG/VIAL IV SCH ×2 (08:12→21:18)
[2019-01-29] MEDS: METOCLOPRAMIDE HCL 10MG/2ML VIAL IV SCH ×3 (08:12→17:04)
[2019-01-29] MEDS: LEVETIRACETAM 250 MG in SODIUM CHLORIDE 0.9% 100 ML IV SCH ×2 (08:12→21:18)
[2019-01-29 09:12] LABS: BG BASE EXCESS 3.2 mmol/L (-2.0-2.0); BG CARBOXYHEMOGLOBIN 1.7 % (0.5-1.5); BG DEOXYHEMOGLOBIN 1.7 % (0.0-5.0); BG FRACTION INSPIRED OXYGEN 40; BG HCO3 ACT 28.7 mmol/L (22.0-26.0); BG METHEMOGLOBIN 0.2 % (0.0-1.5); BG OXYGEN SATURATION 98.3 % (92.0-98.5); BG OXYHEMOGLOBIN 96.4 % (94.0-97.0); BG PCO2 49.6 mmHg (35.0-45.0); BG PH 7.381 (7.350-7.450); BG PO2 142.5 mmHg (75.0-100.0); BG SAMPLE SITE RIGHT RADIAL; BG TIDAL VOLUME(mL) 500 mL; BG TOTAL HEMOGLOBIN 7.2 g/dL (12.0-18.0); BG VENT MODE VENT - A/C; BG VENT RATE 12 set
[2019-01-29 09:50] LABS: NUCLEATED RED BLOOD CELLS 1 /100 WBC; PLATELET ESTIMATE MARKEDLY DECREASED
[2019-01-29] MEDS: MIDAZOLAM HCL 50 MG in DEXTROSE 5% WATER 40 ML IV PRN ×2 (10:09→22:52)
[2019-01-29 14:45] LABS: HEMATOCRIT. 22.2 % (36.0-48.0); HEMOGLOBIN. 7.7 g/dL (12.0-16.0); MEAN CORPUSCULAR VOLUME 87.1 fL (81.0-99.0); MEAN PLATELET VOLUME 7.7 fl (7.4-10.4); PLATELET 52 x1000/uL (130-400); RED BLOOD CELL COUNT 2.55 mill/uL (4.2-5.4); RED CELL DISTRIBUTION WIDTH 15.8 % (11.6-14.6)
[2019-01-29] MEDS: [UNRECOGNIZED DRUG - REMARK] IV SCH ×4 (15:15)
[2019-01-29 21:27] LABS: HEMATOCRIT. 21.4 % (36.0-48.0); HEMOGLOBIN. 7.2 g/dL (12.0-16.0); MEAN CORPUSCULAR HEMOGLOBIN 29.9 pg (28.0-32.0); MEAN CORPUSCULAR VOLUME 88.3 fL (81.0-99.0); MEAN PLATELET VOLUME 7.4 fl (7.4-10.4); RED BLOOD CELL COUNT 2.42 mill/uL (4.2-5.4); RED CELL DISTRIBUTION WIDTH 16.2 % (11.6-14.6)
[2019-01-29 21:29] LABS: PLATELET 44 x1000/uL (130-400)
[2019-01-29 22:58] LABS: PLATELET ESTIMATE MARKEDL
[2019-01-29 23:26] LABS: NUCLEATED RED BLOOD CELLS 4 /100 WBC; PLATELET ESTIMATE MARKEDL
[2019-01-30] VITALS (92 sets, daily range): BP systolic 66–166; BP diastolic 35–93
[2019-01-30] MEDS: BLOOD SUGAR DIAGNOSTIC STRIP TEST SCH ×4 (00:14→18:00)
[2019-01-30] MEDS: DEXT 5%/0.45% NACL 1000ML 1,000 ML IV SCH ×2 (00:20→20:26)
[2019-01-30] MEDS: NOREPINEPHRINE 16 MG in DEXT 5% WATER 234 ML IV PRN ×3 (01:30→17:23)
[2019-01-30] MEDS: IPRATROPIUM/ALBUTEROL 0.5-3(2.5)MG/3ML NEB HHN SCH ×4 (01:56→20:48)
[2019-01-30 05:44] LABS: HEMATOCRIT. 23.3 % (36.0-48.0); MEAN CORPUSCULAR HEMOGLOBIN 29.7 pg (28.0-32.0); MEAN CORPUSCULAR VOLUME 86.2 fL (81.0-99.0); PLATELET 62 x1000/uL (130-400); RED CELL DISTRIBUTION WIDTH 17.6 % (11.6-14.6)
[2019-01-30 05:51] LABS: INR 1.9; PROTHROMBIN TIME 19.1 sec (9.6-11.0)
[2019-01-30] MEDS: LACTULOSE 20G/30ML UDC PO SCH ×4 (06:00→17:23)
[2019-01-30] MEDS: SUCRALFATE 1 G/10 ML UDC PO SCH ×4 (06:00→17:23)
[2019-01-30] MEDS: INSULIN LISPRO 100 UNITS/ML SUBCUT SCH ×4 (06:00→18:00)
[2019-01-30] MEDS: SODIUM CHLORIDE 0.9% INJ 3ML FLUSH IVF SCH ×3 (06:11→21:26)
[2019-01-30] MEDS: FENTANYL CITRATE/PF 500 MCG in SODIUM CHLORIDE 0.9% 40 ML IV PRN ×2 (07:41→23:59)
[2019-01-30] MEDS: RIFAXIMIN 550 MG TABLET PO SCH ×3 (08:36→21:00)
[2019-01-30] MEDS: PANTOPRAZOLE SODIUM 40 MG/VIAL IV SCH ×2 (08:37→21:35)
[2019-01-30] MEDS: LEVETIRACETAM 250 MG in SODIUM CHLORIDE 0.9% 100 ML IV SCH ×2 (08:37→21:26)
[2019-01-30] MEDS: METOCLOPRAMIDE HCL 10MG/2ML VIAL IV SCH ×3 (08:37→16:56)
[2019-01-30 09:29] LABS: NUCLEATED RED BLOOD CELLS 1 /100 WBC; PLATELET ESTIMATE DECREASED
[2019-01-30] MEDS ORDERED: PHENYLEPHRINE 40 MG in DEXT 5% WATER 246 ML IV PRN (10:00)
[2019-01-30 10:15] LABS: BG BASE EXCESS -0.2 mmol/L (-2.0-2.0); BG CARBOXYHEMOGLOBIN 1.5 % (0.5-1.5); BG DEOXYHEMOGLOBIN 2.8 % (0.0-5.0); BG FRACTION INSPIRED OXYGEN 40; BG HCO3 ACT 26.4 mmol/L (22.0-26.0); BG METHEMOGLOBIN 0.4 % (0.0-1.5); BG OXYGEN SATURATION 97.1 % (92.0-98.5); BG OXYHEMOGLOBIN 95.3 % (94.0-97.0); BG PCO2 53.8 mmHg (35.0-45.0); BG PH 7.309 (7.350-7.450); BG PO2 98.3 mmHg (75.0-100.0); BG SAMPLE SITE RIGHT RADIAL; BG TIDAL VOLUME(mL) 500 mL; BG TOTAL HEMOGLOBIN 8.7 g/dL (12.0-18.0); BG VENT MODE VENT - A/C; BG VENT RATE 12 set
[2019-01-30] MEDS: MIDAZOLAM HCL 50 MG in DEXTROSE 5% WATER 40 ML IV PRN ×2 (13:48→23:41)
[2019-01-30] MEDS: [UNRECOGNIZED DRUG - REMARK] IV SCH ×4 (17:22)
[2019-01-30 19:24] LABS: HEMATOCRIT 23.1 % (36.0-48.0); MEAN CORPUSCULAR HEMOGLOBIN 29.4 pg (28.0-32.0); MEAN CORPUSCULAR VOLUME 85.3 fL (81.0-99.0); RED BLOOD CELL COUNT 2.71 mill/uL (4.2-5.4); RED CELL DISTRIBUTION WIDTH 18.2 % (11.6-14.6)
[2019-01-30 19:31] LABS: PLATELET 49 x1000/uL (130-400)
[2019-01-31] VITALS (125 sets, daily range): BP systolic 71–142; BP diastolic 37–89
[2019-01-31] MEDS: BLOOD SUGAR DIAGNOSTIC STRIP TEST SCH ×4 (00:32→17:34)
[2019-01-31] MEDS: IPRATROPIUM/ALBUTEROL 0.5-3(2.5)MG/3ML NEB HHN SCH ×5 (00:38→19:53)
[2019-01-31] MEDS: NOREPINEPHRINE 16 MG in DEXT 5% WATER 234 ML IV PRN ×2 (03:38→12:46)
[2019-01-31] MEDS: SUCRALFATE 1 G/10 ML UDC PO SCH ×4 (06:00→17:34)
[2019-01-31] MEDS: INSULIN LISPRO 100 UNITS/ML SUBCUT SCH ×4 (06:00→17:34)
[2019-01-31] MEDS: LACTULOSE 20G/30ML UDC PO SCH ×4 (06:00→17:34)
[2019-01-31] MEDS: SODIUM CHLORIDE 0.9% INJ 3ML FLUSH IVF SCH ×3 (06:17→21:12)
[2019-01-31] MEDS: DEXT 5%/0.45% NACL 1000ML 1,000 ML IV SCH (06:35)
[2019-01-31 07:18] LABS: BG BASE EXCESS -0.2 mmol/L (-2.0-2.0); BG CARBOXYHEMOGLOBIN 1.9 % (0.5-1.5); BG DEOXYHEMOGLOBIN 5.8 % (0.0-5.0); BG FRACTION INSPIRED OXYGEN 40; BG HCO3 ACT 25.3 mmol/L (22.0-26.0); BG METHEMOGLOBIN 0.4 % (0.0-1.5); BG OXYGEN SATURATION 94.1 % (92.0-98.5); BG OXYHEMOGLOBIN 91.9 % (94.0-97.0); BG PCO2 46.2 mmHg (35.0-45.0); BG PH 7.357 (7.350-7.450); BG PO2 69.6 mmHg (75.0-100.0); BG SAMPLE SITE RIGHT RADIAL; BG TIDAL VOLUME(mL) 500 mL; BG TOTAL HEMOGLOBIN 7.1 g/dL (12.0-18.0); BG VENT MODE VENT - A/C; BG VENT RATE 14 set
[2019-01-31 08:09] LABS: MEAN CORPUSCULAR HEMOGLOBIN 29.7 pg (28.0-32.0); MEAN PLATELET VOLUME 7.8 fl (7.4-10.4); PLATELET 55 x1000/uL (130-400); RED BLOOD CELL COUNT 2.39 mill/uL (4.2-5.4); RED CELL DISTRIBUTION WIDTH 18.8 % (11.6-14.6)
[2019-01-31 08:15] LABS: HEMATOCRIT. 20.5 % (36.0-48.0); HEMOGLOBIN. 7.1 g/dL (12.0-16.0)
[2019-01-31] MEDS: RIFAXIMIN 550 MG TABLET PO SCH ×3 (09:00→21:00)
[2019-01-31] MEDS: LEVETIRACETAM 250 MG in SODIUM CHLORIDE 0.9% 100 ML IV SCH ×2 (09:00→20:29)
[2019-01-31] MEDS: PANTOPRAZOLE SODIUM 40 MG/VIAL IV SCH ×2 (09:05→20:32)
[2019-01-31] MEDS: METOCLOPRAMIDE HCL 10MG/2ML VIAL IV SCH ×3 (09:05→17:34)
[2019-01-31 11:25] LABS: INR 1.9; PROTHROMBIN TIME 19.4 sec (9.6-11.0)
[2019-01-31] MEDS ORDERED: DEXT 5%/0.45% NACL 1000ML 1,000 ML IV SCH (11:45)
[2019-01-31] MEDS: FENTANYL CITRATE/PF 500 MCG in SODIUM CHLORIDE 0.9% 40 ML IV PRN (12:46)
[2019-01-31 15:03] LABS: PLATELET ESTIMATE MARKEDLY DECREASED
[2019-01-31] MEDS: [UNRECOGNIZED DRUG - REMARK] IV SCH ×4 (17:33)
[2019-01-31 18:11] LABS: HEMATOCRIT 24.2 % (36.0-48.0); HEMOGLOBIN 8.3 g/dL (12.0-16.0)
[2019-01-31] MEDS: NOREPINEPHRINE 32 MG in DEXT 5% WATER 468 ML IV PRN (20:32)
[2019-01-31] MEDS ORDERED: TOTAL PARENTERAL NUTRITION 1,000 ML IV SCH (21:00)
[2019-01-31 22:35] LABS: BG BASE EXCESS -2.2 mmol/L (-2.0-2.0); BG CARBOXYHEMOGLOBIN 1.6 % (0.5-1.5); BG FRACTION INSPIRED OXYGEN 50; BG HCO3 ACT 23.9 mmol/L (22.0-26.0); BG METHEMOGLOBIN 0.3 % (0.0-1.5); BG OXYGEN SATURATION 94.9 % (92.0-98.5); BG OXYHEMOGLOBIN 93.1 % (94.0-97.0); BG PCO2 47.4 mmHg (35.0-45.0); BG PO2 77.4 mmHg (75.0-100.0); BG SAMPLE SITE RIGHT RADIAL; BG TIDAL VOLUME(mL) 500 mL; BG TOTAL HEMOGLOBIN 8.4 g/dL (12.0-18.0); BG VENT MODE VENT - A/C; BG VENT RATE 14 set
[2019-01-31 23:22] LABS: HEMATOCRIT. 21.5 % (36.0-48.0); HEMOGLOBIN. 7.4 g/dL (12.0-16.0); MEAN CORPUSCULAR HEMOGLOBIN 29.9 pg (28.0-32.0); MEAN CORPUSCULAR VOLUME 86.9 fL (81.0-99.0); MEAN PLATELET VOLUME 7.8 fl (7.4-10.4); RED BLOOD CELL COUNT 2.47 mill/uL (4.2-5.4)
[2019-01-31 23:36] LABS: PLATELET 15 x1000/uL (130-400)
[2019-02-01] VITALS (103 sets, daily range): BP systolic 100–170; BP diastolic 47–109
[2019-02-01] MEDS: BLOOD SUGAR DIAGNOSTIC STRIP TEST SCH ×4 (00:14→17:49)
[2019-02-01] MEDS: MIDAZOLAM HCL 50 MG in DEXTROSE 5% WATER 40 ML IV PRN (00:15)
[2019-02-01] MEDS: IPRATROPIUM/ALBUTEROL 0.5-3(2.5)MG/3ML NEB HHN SCH ×4 (01:54→20:06)
[2019-02-01 02:13] LABS: NUCLEATED RED BLOOD CELLS 5 /100 WBC; PLATELET ESTIMATE MARKEDLY DECREASED
[2019-02-01] MEDS: FENTANYL CITRATE/PF 500 MCG in SODIUM CHLORIDE 0.9% 40 ML IV PRN ×2 (03:16→16:34)
[2019-02-01] MEDS: SODIUM CHLORIDE 0.9% INJ 3ML FLUSH IVF SCH ×3 (06:00→21:58)
[2019-02-01] MEDS: SUCRALFATE 1 G/10 ML UDC PO SCH ×4 (06:00→17:12)
[2019-02-01] MEDS: LACTULOSE 20G/30ML UDC PO SCH ×4 (06:00→17:12)
[2019-02-01] MEDS: INSULIN LISPRO 100 UNITS/ML SUBCUT SCH ×4 (06:00→17:49)
[2019-02-01 07:45] LABS: BG BASE EXCESS -1.9 mmol/L (-2.0-2.0); BG CARBOXYHEMOGLOBIN 1.4 % (0.5-1.5); BG DEOXYHEMOGLOBIN 5.5 % (0.0-5.0); BG FRACTION INSPIRED OXYGEN 50; BG HCO3 ACT 24.9 mmol/L (22.0-26.0); BG METHEMOGLOBIN 0.3 % (0.0-1.5); BG OXYGEN SATURATION 94.4 % (92.0-98.5); BG OXYHEMOGLOBIN 92.8 % (94.0-97.0); BG PCO2 52.9 mmHg (35.0-45.0); BG PO2 73.9 mmHg (75.0-100.0); BG SAMPLE SITE RIGHT RADIAL; BG TIDAL VOLUME(mL) 500 mL; BG TOTAL HEMOGLOBIN 8.4 g/dL (12.0-18.0); BG VENT MODE VENT - A/C
[2019-02-01] MEDS: RIFAXIMIN 550 MG TABLET PO SCH ×2 (09:00→21:00)
[2019-02-01] MEDS: PANTOPRAZOLE SODIUM 40 MG/VIAL IV SCH ×2 (09:08→21:56)
[2019-02-01] MEDS: METOCLOPRAMIDE HCL 10MG/2ML VIAL IV SCH ×3 (09:08→17:49)
[2019-02-01] MEDS: LEVETIRACETAM 250 MG in SODIUM CHLORIDE 0.9% 100 ML IV SCH ×2 (09:08→21:55)
[2019-02-01] MEDS ORDERED: MIDAZOLAM HCL 100 MG in DEXT 5% WATER 80 ML IV PRN (11:30)
[2019-02-01] MEDS ORDERED: PHENYLEPHRINE HCL 1% 15 ML NASAL SPRAY BOTHNSTRLS PRN (11:30)
[2019-02-01 11:56] LABS: HEMATOCRIT. 25.3 % (36.0-48.0); HEMOGLOBIN. 8.7 g/dL (12.0-16.0); MEAN CORPUSCULAR HEMOGLOBIN 30.1 pg (28.0-32.0); MEAN CORPUSCULAR VOLUME 87.2 fL (81.0-99.0); MEAN PLATELET VOLUME 7.5 fl (7.4-10.4); RED BLOOD CELL COUNT 2.91 mill/uL (4.2-5.4); RED CELL DISTRIBUTION WIDTH 17.5 % (11.6-14.6)
[2019-02-01 12:01] LABS: PROTHROMBIN TIME 20.3 sec (9.6-11.0)
[2019-02-01 12:15] LABS: PHOSPHORUS 4.3 mg/dL (2.5-4.9)
[2019-02-01 12:17] LABS: PLATELET 46 x1000/uL (130-400)
[2019-02-01 13:28] LABS: NUCLEATED RED BLOOD CELLS 5 /100 WBC; PLATELET ESTIMATE MARKEDLY DECREASED
[2019-02-01] MEDS: NOREPINEPHRINE 32 MG in DEXT 5% WATER 468 ML IV PRN (16:35)
[2019-02-01] MEDS: PHYTONADIONE 10MG/ML AMP SUBCUT SCH (17:49)
[2019-02-01] MEDS ORDERED: TOTAL PARENTERAL NUTRITION 1,100 ML IV SCH (21:00)
[2019-02-01] MEDS: OXYMETAZOLINE HCL NASAL SPRAY 15ML BOTHNSTRLS SCH (21:55)
[2019-02-02] VITALS (40 sets, daily range): BP systolic 17–133; BP diastolic 36–82
[2019-02-02] MEDS: BLOOD SUGAR DIAGNOSTIC STRIP TEST SCH ×3 (00:42→12:00)
[2019-02-02] MEDS: IPRATROPIUM/ALBUTEROL 0.5-3(2.5)MG/3ML NEB HHN SCH ×3 (02:34→14:48)
[2019-02-02 05:48] LABS: HEMATOCRIT. 23.7 % (36.0-48.0); HEMOGLOBIN. 8.3 g/dL (12.0-16.0); MEAN CORPUSCULAR HEMOGLOBIN 30.4 pg (28.0-32.0); MEAN CORPUSCULAR VOLUME 86.4 fL (81.0-99.0); MEAN PLATELET VOLUME 7.8 fl (7.4-10.4); PLATELET 60 x1000/uL (130-400); RED BLOOD CELL COUNT 2.74 mill/uL (4.2-5.4); RED CELL DISTRIBUTION WIDTH 17.7 % (11.6-14.6)
[2019-02-02 05:50] LABS: CHLORIDE 106 mEq/L (98-107)
[2019-02-02 05:52] LABS: INR 1.8; PROTHROMBIN TIME 18.2 sec (9.6-11.0)
[2019-02-02] MEDS: LACTULOSE 20G/30ML UDC PO SCH ×3 (06:00→12:00)
[2019-02-02] MEDS: SUCRALFATE 1 G/10 ML UDC PO SCH ×3 (06:00→12:00)
[2019-02-02] MEDS: INSULIN LISPRO 100 UNITS/ML SUBCUT SCH ×3 (06:00→12:00)
[2019-02-02] MEDS: SODIUM CHLORIDE 0.9% INJ 3ML FLUSH IVF SCH ×2 (06:17→14:00)
[2019-02-02] MEDS: RIFAXIMIN 550 MG TABLET PO SCH ×2 (08:49→09:00)
[2019-02-02] MEDS: PANTOPRAZOLE SODIUM 40 MG/VIAL IV SCH (08:50)
[2019-02-02] MEDS: PHYTONADIONE 10MG/ML AMP SUBCUT SCH (08:50)
[2019-02-02] MEDS: METOCLOPRAMIDE HCL 10MG/2ML VIAL IV SCH ×2 (08:51→13:02)
[2019-02-02] MEDS: OXYMETAZOLINE HCL NASAL SPRAY 15ML BOTHNSTRLS SCH (08:51)
[2019-02-02 09:51] LABS: PLATELET ESTIMATE DECREASED
[2019-02-02] MEDS: LEVETIRACETAM 250 MG in SODIUM CHLORIDE 0.9% 100 ML IV SCH (09:59)
[2019-02-02] MEDS: FENTANYL CITRATE/PF 500 MCG in SODIUM CHLORIDE 0.9% 40 ML IV PRN (10:07)
[2019-02-02 10:30] LABS: BG BASE EXCESS -0.1 mmol/L (-2.0-2.0); BG CARBOXYHEMOGLOBIN 1.1 % (0.5-1.5); BG DEOXYHEMOGLOBIN 10.8 % (0.0-5.0); BG FRACTION INSPIRED OXYGEN 40; BG METHEMOGLOBIN 0.2 % (0.0-1.5); BG OXYGEN SATURATION 89.1 % (92.0-98.5); BG OXYHEMOGLOBIN 87.9 % (94.0-97.0); BG PCO2 49.3 mmHg (35.0-45.0); BG PO2 57.2 mmHg (75.0-100.0); BG SAMPLE SITE RIGHT RADIAL; BG TIDAL VOLUME(mL) 500 mL; BG TOTAL HEMOGLOBIN 9.5 g/dL (12.0-18.0); BG VENT MODE VENT - A/C; BG VENT RATE 16 set
[2019-02-02] MEDS ORDERED: HALOPERIDOL LACTATE 5MG/ML VIAL IM PRN (15:15)
[2019-02-02] MEDS ORDERED: MORPHINE SULFATE 250 MG in DEXT 5% WATER 240 ML IV PRN (15:15)
[2019-02-02] MEDS ORDERED: LORAZEPAM 2MG/ML CPJ IV PRN (15:15)
[2019-02-02] MEDS ORDERED: FAT EMULSIONS 500 ML IV SCH (21:00)
[2019-02-02] MEDS ORDERED: TOTAL PARENTERAL NUTRITION 1,500 ML IV SCH (21:00)
== END 2019-02-02 18:08 | disposition expired | DRG 53 ==
LOC: ER 11:00 → 3WST 16:27 → ENRESERV 19:02 → EDBEDREQTM 19:26 → EDBEDREQSVC 19:26 → CANBEDREQ 19:29 → ENRESERV 19:55 → CVICU 01-21 07:26
PROVIDERS: ADMIT Internal Medicine; ATTEND Internal Medicine
PROC: 30233N1 Transfusion of Nonautologous Red Blood Cells into Peripheral Vein, Percutaneous Approach (ICD-10-PCS; 2019-01-20)
PROC: 05H633Z Insertion of Infusion Device into Left Subclavian Vein, Percutaneous Approach (ICD-10-PCS; principal; 2019-01-21)
PROC: B547ZZA Ultrasonography of Left Subclavian Vein, Guidance (ICD-10-PCS; 2019-01-21)
PROC: 0DJ08ZZ Inspection of Upper Intestinal Tract, Via Natural or Artificial Opening Endoscopic (ICD-10-PCS; 2019-01-22)
PROC: 30233L1 Transfusion of Nonautologous Fresh Plasma into Peripheral Vein, Percutaneous Approach (ICD-10-PCS; 2019-01-22)
PROC: 02HV33Z Insertion of Infusion Device into Superior Vena Cava, Percutaneous Approach (ICD-10-PCS; 2019-01-25)
PROC: B548ZZA Ultrasonography of Superior Vena Cava, Guidance (ICD-10-PCS; 2019-01-25)
DX: G40.909 Epilepsy, unspecified, not intractable, without status epilepticus (principal); J96.00 Acute respiratory failure, unspecified whether with hypoxia or hypercapnia; J69.0 Pneumonitis due to inhalation of food and vomit; A41.9 Sepsis, unspecified organism; G93.40 Encephalopathy, unspecified; E43 Unspecified severe protein-calorie malnutrition; E72.20 Disorder of urea cycle metabolism, unspecified; N17.9 Acute kidney failure, unspecified; I85.00 Esophageal varices without bleeding; I50.9 Heart failure, unspecified; D68.9 Coagulation defect, unspecified; D69.59 Other secondary thrombocytopenia; I11.0 Hypertensive heart disease with heart failure; D64.9 Anemia, unspecified; E11.9 Type 2 diabetes mellitus without complications; D25.9 Leiomyoma of uterus, unspecified; F10.20 Alcohol dependence, uncomplicated; I25.10 Atherosclerotic heart disease of native coronary artery without angina pectoris; K06.8 Other specified disorders of gingiva and edentulous alveolar ridge; K22.10 Ulcer of esophagus without bleeding; K22.2 Esophageal obstruction; K29.00 Acute gastritis without bleeding; K31.89 Other diseases of stomach and duodenum; K44.9 Diaphragmatic hernia without obstruction or gangrene; K52.9 Noninfective gastroenteritis and colitis, unspecified; R04.0 Epistaxis; N39.0 Urinary tract infection, site not specified; I95.9 Hypotension, unspecified; Z66 Do not resuscitate; Z51.5 Encounter for palliative care; Z59.0 Homelessness; Z87.11 Personal history of peptic ulcer disease; Z87.19 Personal history of other diseases of the digestive system; Z91.14 Patient's other noncompliance with medication regimen; Z91.19 Patient's noncompliance with other medical treatment and regimen; Z99.2 Dependence on renal dialysis; Z68.25 Body mass index [BMI] 25.0-25.9, adult; K70.31 Alcoholic cirrhosis of liver with ascites
CPT/HCPCS: 36415; 36600; 71045; 74018; 74176; 76700; 76937; 80048; 80053; 80061; 80076; 80185; 80305; 80320; 81003; 82043; 82140; 82270; 82375; 82550; 82553; 82570; 82728; 82805; 82962; 83036; 83540; 83550; 83605; 83735; 83880; 84100; 84439; 84443; 84478; 84484; 85014; 85018; 85025; 85027; 85379; 85384; 86705; 86709; 86803; 86850; 86900; 86920; 86927; 86945; 87340; 87389; 92610; 93005; 93306; 93970; 94003; 94640; 95816; 99285; A6261; C1725; C1752; C9113; J1165; J1200; J1642; J1644; J1953; J1956; J2060; J2250; J2765; J3010; J3411; J3430; J3475; J3490; J7030; J7040; J7050; J7060; J7620; P9016; P9017; P9021; P9034; A4315; G0480